=== PATIENT | male | born 1970 | race African-American/Black ===

== ENCOUNTER → 2019-01-23 | Outpatient (CLI) | payer OTHER ==
--- NOTE | 2019-01-23 09:29 | REP ---
Clinical: Bilateral knee pain. Technique: AP, lateral, bilateral oblique and sunrise views of the right and left knee. Findings: Generalized symmetric age-related changes are appreciated. No evidence for fracture or dislocation. No obvious effusion. No overt osteoarthritic degenerative findings. Impression: Generalized symmetric age-related changes. No obvious significant musculoskeletal pathology by radiographic evaluation. Electronically Signed by Ham Sims MD 01/23/2019 09:20 A
== END ==
LOC: M RAD 08:35
PROVIDERS: ATTEND Surgery
DX: M25.561 Pain in right knee (principal); M25.562 Pain in left knee